=== PATIENT | female | born 1980 | race Caucasian/White ===

== ENCOUNTER → 2018-08-26 | Outpatient (CLI) | payer MEDICAID | LOC: FIMAGING 13:48 | PROVIDERS: ATTEND Advanced Practice Midwife | DX: O09.522 Supervision of elderly multigravida, second trimester (principal); Z3A.20 20 weeks gestation of pregnancy ==

== ENCOUNTER 2019-01-10 05:21 | Inpatient (IN) | payer MEDICAID | END 2019-01-12 13:24 | disposition home or self-care (01) | LOC: FLD 05:21 → FOB 23:58 ==